=== PATIENT | male | born 1945 | race Hispanic/Latino ===

== ENCOUNTER 2018-02-27 15:12 | Observation (INO) | payer OTHER ==
--- NOTE | 2018-02-27 16:03 | C.PDOC ---
History Of Present Illness 72-year-old male, presents to the emergency department accompanied by family, with complaints of dizziness. Patient state he woke up at 03:00 this morning, and felt that both his legs were feeling weak. Patient notes he went for a walk at 06:00 and continued to feel parasthesias and weakness in both legs. Patient states at 15:00 today, he developed dizziness, described as spinning, which worsens with head movement. He notes associated nausea and non-bloody/non- bilious vomiting. Patient denies any fevers, chills, numbness/weakness, or any other associated symptoms. No other complaints at this time. Time Seen by Provider: 02/27/18 15:41 Chief Complaint (Nursing): Dizziness/Lightheaded History Per: Patient, Family History/Exam Limitations: no limitations Onset/Duration Of Symptoms: Hrs Current Symptoms Are (Timing): Still Present Past Medical History Reviewed: Historical Data, Nursing Documentation, Vital Signs Vital Signs: Last Vital Signs Temp 98.1 F 02/27/18 15:16 Pulse 64 02/27/18 17:04 Resp 16 02/27/18 17:04 BP 133/76 02/27/18 17:04 Pulse Ox 96 02/27/18 17:14 - Medical History PMH: Denies: Chronic Kidney Disease - [facility] Procedures CLOSED ENDOSCOPIC BIOPSY OF LARGE INTESTINE (10/11/14) Family History: States: No Known Family Hx - Social History Hx Alcohol Use: Yes Hx Substance Use: Yes Review Of Systems Except As Marked, All Systems Reviewed And Found Negative. Constitutional: Negative for: Fever Cardiovascular: Negative for: Chest Pain, Palpitations Respiratory: Negative for: Shortness of Breath Gastrointestinal: Positive for: Nausea, Vomiting. Negative for: Abdominal Pain Neurological: Positive for: Weakness, Dizziness. Negative for: Numbness, Altered Mental Status, Headache Physical Exam - Physical Exam Appears: Non-toxic, No Acute Distress Skin: Normal Color, Warm, Dry, No Rash Head: Atraumatic, Normacephalic Eye(s): bilateral: Normal Inspection, PERRL, EOMI Nose: Normal Oral Mucosa: Moist Lips: Normal Appearing Neck: Normal ROM Cardiovascular: Rhythm Regular, No Murmur Respiratory: Normal Breath Sounds, No Accessory Muscle Use Gastrointestinal/Abdominal: Soft, No Tenderness Extremity: Normal ROM, No Deformity, No Swelling Neurological/Psych: Oriented x3, Normal Speech, Other (SEE NIH) ED Course And Treatment - Laboratory Results Result Diagrams: 02/27/18 16:09 02/27/18 16:09 O2 Sat by Pulse Oximetry: 96 Pulse Ox Interpretation: Normal (RA) NIHSS Stroke Scale 2 - Date/Time Evaluation Performed Date Performed: 02/27/18 Time Performed: 16:01 When Was NIHSS Performed: Code Stroke - How Severe is the Stroke Level of Consciousness: 0=Alert LOC to Questions: 0=Both comments correct LOC to commands: 0=Obeys both correctly Best Gaze: 0=Normal Visual: 0=No visual loss Facial: 0=Normal Motor Arm - Left: 0=No drift Motor Arm - Right: 0=No drift Motor Leg - Left: 0=No drift Motor Leg - Right: 0=No drift Limb Ataxia: 0=Absent Sensory: 0=Normal Best Language: 0=No aphasia Dysarthia: 0=Normal articulation Extinction & Inattention (Neglect): 0=Normal, no object Score: 0 Progress - Re-Evaluation Re-evaluation Note: 02/27/18 16:00 CODE STROKE ACTIVATED PER DEPT GUIDELINES PENDING CALLBACK DR ROGER 02/27/18 17:14 D/W DR ROGER AWARE OF ER FINDINGS. ADVISES MRI, ADMIT MEDICINE WILL CONSULT 02/27/18 17:42 EXAM IMPROVED D/W DR José Luis [facility] C/F PMD, WILL ADMIT. STATES TO ADMIT DR ALAMO - Data Reviewed Data Reviewed: Lab, Diagnostic imaging, EKG, Old records rTPA Inclusion/Exclusion - Refusal of Treatment Patient Refused Treatment: Yes - Inclusion Criteria for Altepase Patient is 18 years or Older: Yes The Clinical Diagnosis of Ischemic Stroke That is Causing a Potentially Disabling Neurological Deficit: No Time of Onset is Well Established to be Less Than 270 Minute Before Treatment Would Begin: No Risk/Benefit Discussed With Patient/Family Member Present: Yes - Exclusion Criteria for Altepase Uncontrolled Hypertension at Time of Treatment (Systolic BP above 185 or Diastolic BP above 110 mmHg): Yes Active Internal Bleeding: No Known Bleeding Diathesis Including but Not Limited to: Platelets Below 100,000/ mm,PTT Above 40 sec After Heparin Use, Current Use of Oral Anitcoagulant With INR Greater Than 1.7 or PT Greater Than 15 secs: No Evidence of an Intracranial Hemorrhage: No Evidence of Major Acute Infarct With Signs Greater Than 1/3 MCA Territory: No Suspicion of Subarachnoid Hemorrhage on Pretreatment Evaluation Even if CT Head Negative For Hemorrhage: No - Warning to TPA With Conditions Following Conditions Weighed Against Anticipated Benefit: Yes Condition: Stroke Serevity Too Mild Disposition Counseled Patient/Family Regarding: Studies Performed, Diagnosis - Disposition Disposition: HOSPITALIZED Disposition Time: 17:56 Condition: STABLE Forms: [facility] (Khmer) - Clinical Impression Clinical Impression: Syncope, Vertigo - Scribe Statement The provider has reviewed the documentation as recorded by the Scribe (Jacky Hoang) All medical record entries made by the Scribe were at my direction and personally dictated by me. I have reviewed the chart and agree that the record accurately reflects my personal performance of the history, physical exam, medical decision making, and the department course for this patient. I have also personally directed, reviewed, and agree with the discharge instructions and disposition. Decision To Admit - Pt Status Changed To: Hospital Disposition Of: Observation - . Bed Request Type: Telemetry Admitting Physician: Carlos Alamo Patient Diagnosis: Syncope, Vertigo, TIA (transient ischemic attack)
[2018-02-27 16:12] LABS: BASO # 0.1 K/uL (0.0-0.2); BASO % 0.7 % (0.0-2.0); EOS % 0.5 % (0.0-4.0); HEMOGLOBIN 13.8 g/dL (12.0-18.0); LYMPH # 1.7 K/uL (1.0-4.3); LYMPH % 21.5 % (20.0-40.0); MEAN CELL VOLUME 97.4 fL (80.0-94.0); MEAN CORPUSCULAR HEMOGLOBIN 32.5 pg (27.0-31.0); MEAN CORPUSCULAR HGB CONC 33.4 g/dL (33.0-37.0); MEAN PLATELET VOLUME 7.6 fL (7.2-11.7); MONO # 0.5 K/uL (0.0-0.8); MONO % 5.6 % (0.0-10.0); NEUT # 5.8 K/uL (1.8-7.0); NEUT % 71.7 % (50.0-75.0); RBC 4.25 Mil/uL (4.40-5.90); RED CELL DISTRIBUTION WIDTH 13.2 % (11.5-14.5); WHITE BLOOD COUNT 8.1 K/uL (4.8-10.8)
[2018-02-27] MEDS ORDERED: Iodixanol 320 mg/ml 150 ml Bottle IV ONE (16:12)
[2018-02-27] MEDS: Sodium Chloride 0.9% 1,000 ML IV SCH (16:15)
--- NOTE | 2018-02-27 16:24 | CT ---
Date of service: 02/27/2018 PROCEDURE: CT HEAD WITHOUT CONTRAST. HISTORY: Code Stroke COMPARISON: None available. TECHNIQUE: Axial computed tomography images were obtained through the head/brain without intravenous contrast. . Radiation dose: Total exam DLP = mGy-cm. This CT exam was performed using one or more of the following dose reduction techniques: Automated exposure control, adjustment of the mA and/or kV according to patient size, and/or use of iterative reconstruction technique. FINDINGS: HEMORRHAGE: No acute parenchymal, subarachnoid nor extra-axial hemorrhage. BRAIN: No evidence of large infarct. Suspect minimal chronic periventricular white matter ischemic changes. Note that the possibility of a small hyperacute infarct cannot be excluded on this study. . No obvious parenchymal nor extra-axial mass or collection seen. Mild generalized volume loss. Mild vascular calcifications VENTRICLES: No obstructive hydrocephalus. CALVARIUM: Calvarium intact. PARANASAL SINUSES: Minor mucosal thickening seen within a few ethmoid air cells. MASTOID AIR CELLS: Unremarkable as visualized. No inflammatory changes. OTHER FINDINGS: None. IMPRESSION: No acute intracranial hemorrhage. Suspect minor chronic periventricular white matter ischemic changes. Mild moderate generalized volume loss
--- NOTE | 2018-02-27 16:52 | CT ---
Date of service: 02/27/2018 PROCEDURE: CT Angiography of the neck neck and brain dated 02/27/2018 HISTORY: VERTIGO, LEG WEAKNESS COMPARISON: Comparison made with concurrent CT scan brain TECHNIQUE: Contiguous axial images of the neck and brain were obtained from the level of the vertex to the superior mediastinum in the arteriographic phase of enhancement. Coronal and sagittal reformats or also generated. IV contrast dose: 100 cc Visipaque 320 Radiation Dose - DLP: 580.28 mGy-cm This CT exam was performed using one or more of the following dose reduction techniques: Automated exposure control, adjustment of the mA and/or kV according to patient size, and/or use of iterative reconstruction technique. FINDINGS: The aortic arch is widely patent as are the origins of the great vessels. No significant atherosclerotic disease. Ascending thoracic aorta measures approximate 2.9 cm and descending thoracic aorta measures approximately 2.3 cm. RIGHT CAROTID ARTERIES: Common Carotid Artery: Normal. Carotid Bifurcation: Normal. Internal Carotid Artery:Normal. External Carotid Artery (proximal branches): Normal. LEFT CAROTID ARTERIES: Common Carotid Artery: Normal. Carotid Bifurcation: Normal. Internal Carotid Artery:Normal. External Carotid Artery (proximal branches): Normal. VERTEBRAL ARTERIES: Rig both vertebral arteries are patent right-sided which is slightly larger in caliber/ more dominant than the left-side. Basilar artery is patent. OTHER FINDINGS: The distal internal carotid arteries including the petrous cavernous and supraclinoid segments also patent. . The visualized major branches of the [place] are also patent. Some minimal asymmetry of the A1 segments, which left-sided which is slightly larger in caliber/more dominant than the right side. The distal branches of the middle cerebral arteries appear symmetric. No evidence of large aneurysm nor vascular malformation. IMPRESSION: No evidence of occlusion or significant stenosis of the cervical or intracranial circulation. No evidence of significant atherosclerotic disease. No evidence of large aneurysm nor vascular malformation.
[2018-02-27 16:55] LABS: BLOOD UREA NITROGEN 13 mg/dL (9-20); CALCIUM 9.3 mg/dl (8.6-10.4); GFR AFRICAN-AMERICAN > 60; GFR NON-AFRICAN AMERICAN > 60
[2018-02-27 16:56] LABS: ALB/GLOB RATIO 1.2 (1.0-2.1); ALBUMIN 4.1 g/dL (3.5-5.0); ALT/SGPT 27 U/L (21-72); AST/SGOT 25 U/L (17-59); HDL CHOLESTEROL 39 mg/dL (30-70); LDL CHOLESTEROL 118 mg/dL (0-129)
[2018-02-27 17:05] LABS: INR 1.1; PROTHROMBIN TIME 11.6 SECONDS (9.7-12.2)
--- NOTE | 2018-02-27 17:19 | RAD ---
Date of service: 02/27/2018 HISTORY: Code Stroke COMPARISON: No prior. FINDINGS: LUNGS: No active pulmonary disease. PLEURA: No significant pleural effusion identified, no pneumothorax apparent. CARDIOVASCULAR: Normal. OSSEOUS STRUCTURES: No significant abnormalities. VISUALIZED UPPER ABDOMEN: Normal. OTHER FINDINGS: None. IMPRESSION: No active disease.
[2018-02-27 22:33] VITALS: RESP 20
[2018-02-27 23:24] VITALS: TEMP 98.1
[2018-02-28] MEDS: Sodium Chloride 0.9% 1,000 ML IV SCH (01:19)
--- NOTE | 2018-02-28 01:42 | CP.PCM.HP ---
<Carlos Alamo P - Last Filed: 02/28/18 06:31> Meds Home Medications: Home Medication List Medication Instructions Recorded Confirmed Type Aspirin 81 mg PO DAILY #30 tab.chew 02/28/18 Rx Meclizine [Meclizine*] 25 mg PO Q6 PRN #30 tab 02/28/18 Rx Allergies/Adverse Reactions: Allergies Allergy/AdvReac Type Severity Reaction Status Date / Time No Known Allergies Allergy Verified 02/27/18 15:19 Results - Vital Signs Recent Vital Signs: Last Vital Signs Temp 98.1 F 02/27/18 23:23 Pulse 69 02/28/18 04:00 Resp 20 02/27/18 23:23 BP 119/75 02/27/18 23:23 Pulse Ox 99 02/28/18 03:00 - Labs Result Diagrams: 02/27/18 16:09 02/27/18 16:09 Labs: Laboratory Results - last 24 hr 02/27/18 02/27/18 02/27/18 16:09 16:09 16:09 WBC 8.1 RBC 4.25 L Hgb 13.8 Hct 41.4 MCV 97.4 H MCH 32.5 H MCHC 33.4 RDW 13.2 Plt Count 362 MPV 7.6 Neut % (Auto) 71.7 Lymph % (Auto) 21.5 Woodson % (Auto) 5.6 Eos % (Auto) 0.5 Baso % (Auto) 0.7 Neut # (Auto) 5.8 Lymph # (Auto) 1.7 Woodson # (Auto) 0.5 Eos # (Auto) 0.0 Baso # (Auto) 0.1 PT 11.6 INR 1.1 APTT 32 Sodium 137 Potassium 4.7 Chloride 101 Carbon Dioxide 24 Anion Gap 17 BUN 13 Creatinine 0.8 Est GFR ( Amer) > 60 Est GFR (Non-Af Amer) > 60 Random Glucose 127 H Hemoglobin A1c Calcium 9.3 Total Bilirubin 0.8 AST 25 ALT 27 Alkaline Phosphatase 71 Troponin I < 0.0120 Total Protein 7.4 Albumin 4.1 Globulin 3.3 Albumin/Globulin Ratio 1.2 Triglycerides 89 Cholesterol 188 LDL Cholesterol Direct 118 HDL Cholesterol 39 Blood Type Antibody Screen 02/27/18 02/27/18 16:33 16:33 WBC RBC Hgb Hct MCV MCH MCHC RDW Plt Count MPV Neut % (Auto) Lymph % (Auto) Woodson % (Auto) Eos % (Auto) Baso % (Auto) Neut # (Auto) Lymph # (Auto) Woodson # (Auto) Eos # (Auto) Baso # (Auto) PT INR APTT Sodium Potassium Chloride Carbon Dioxide Anion Gap BUN Creatinine Est GFR ( Amer) Est GFR (Non-Af Amer) Random Glucose Hemoglobin A1c 5.9 Calcium Total Bilirubin AST ALT Alkaline Phosphatase Troponin I Total Protein Albumin Globulin Albumin/Globulin Ratio Triglycerides Cholesterol LDL Cholesterol Direct HDL Cholesterol Blood Type O POSITIVE Antibody Screen Negative Attending/Attestation - Attestation I have personally seen and examined this patient.: Yes I have fully participated in the care of the patient.: Yes I have reviewed all pertinent clinical information: Yes Notes (Text): Assessment Clinically BPVV, as no other neurologic deficit. Stroke w/u recommended by neurology, MRI brain hence ordered. Plan Symptomatic treatment with meclinzine Counselled about controlling symptoms with acute episode PRN Zofran DVT prophylaxis See orders for detail. <Tavo Ross - Last Filed: 02/28/18 20:49> History of Present Illness - History of Present Illness History of Present Illness: 72yo male qith no knoqn pmh presents to the ED with one day history of dizziness. Pt woke up this morning at 3am with extreme dizziness and went back to sleep. at 6am he woke up again and tried to walk, the room began to spin, he fell down on his side. Pt denies any injuries sustained when falling. Pt states the pain is worse with head rotation to the left. he states it was worse this morning but feels better now after his treatment of meclizine given by the ED. Pt reported vomiting his breakfast today from the dizziness. Pt states hes never had these symptoms before. Pt also complains of bilateral leg weakness but says it is resolved by laying down. ROS: pos+ dizziness, n/v, recent sickness (stomach ache 15 days ago 1 episode of vomitting) neg- f/c, sick contacts, bruising, bleeding, slurred speech, memory loss, numbness, tingling, loss of bowel/bladder control, SOB, Cough Present on Admission - Present on Admission Any Indicators Present on Admission: No Review of Systems - Constitutional Constitutional: As Per HPI - EENT Eyes: As Per HPI Ears: As Per HPI Nose/Mouth/Throat: As Per HPI - Cardiovascular Cardiovascular: As Per HPI - Respiratory Respiratory: As Per HPI - Gastrointestinal Gastrointestinal: As Per HPI - Genitourinary Genitourinary: As Per HPI - Reproductive: Male Reproductive:Male: As Per HPI - Musculoskeletal Musculoskeletal: As Per HPI - Integumentary Integumentary: As Per HPI - Neurological Neurological: As Per HPI - Psychiatric Psychiatric: As Per HPI - Endocrine Endocrine: As Per HPI - Hematologic/Lymphatic Hematologic: As Per HPI Past Patient History - Past Medical History & Family History Past Medical History?: Yes - Past Social History Smoking Status: Never Smoked - CARDIAC Hx Cardiac Disorders: No - PULMONARY Hx Respiratory Disorders: Yes Hx Respiratory Tract Infection: Yes - NEUROLOGICAL Hx Neurological Disorder: No - HEENT Hx HEENT Problems: No - RENAL Hx Chronic Kidney Disease: No - ENDOCRINE/METABOLIC Hx Endocrine Disorders: No - HEMATOLOGICAL/ONCOLOGICAL Hx Blood Disorders: No - INTEGUMENTARY Hx Dermatological Problems: No - MUSCULOSKELETAL/RHEUMATOLOGICAL Hx Musculoskeletal Disorders: No - GASTROINTESTINAL Hx Gastrointestinal Disorders: No - GENITOURINARY/GYNECOLOGICAL Hx Genitourinary Disorders: No - PSYCHIATRIC Hx Substance Use: Yes - SURGICAL HISTORY Hx Surgeries: Yes Hx Musculoskeletal Surgery: Yes (FX RIGHT ARM) - ANESTHESIA Hx Anesthesia: Yes Hx Anesthesia Reactions: No Hx Malignant Hyperthermia: No Physical Exam - Constitutional Appears: Non-toxic, No Acute Distress - Head Exam Head Exam: ATRAUMATIC, NORMAL INSPECTION - Eye Exam Eye Exam: EOMI, Normal appearance. absent: Periorbital swelling, Scleral icterus - ENT Exam ENT Exam: Mucous Membranes Moist - Neck Exam Neck exam: Positive for: Normal Inspection - Respiratory Exam Respiratory Exam: Clear to Auscultation Bilateral, NORMAL BREATHING PATTERN. absent: Wheezes, Respiratory Distress, Stridor - Cardiovascular Exam Cardiovascular Exam: RRR, +S1, +S2. absent: Diastolic murmur, Systolic Murmur - GI/Abdominal Exam GI & Abdominal Exam: Normal Bowel Sounds, Soft. absent: Guarding, Tenderness - Extremities Exam Extremities exam: Positive for: full ROM, normal inspection, pedal pulses present. Negative for: tenderness - Back Exam Back exam: NORMAL INSPECTION - Neurological Exam Neurological exam: Alert, CN II-XII Intact, Oriented x3 Additional comments: Neg: Hoffmans, blink reflex tap, rhomberg's, pronator drift, dixx hallpike, intention tremor, 3 item memory deficit pos: nausea and dizziness reproduced with left sided head rotation - Psychiatric Exam Psychiatric exam: Normal Affect - Skin Skin Exam: Dry, Intact, Warm Results - Vital Signs Recent Vital Signs: Last Vital Signs Temp 98.1 F 02/27/18 23:23 Pulse 81 02/27/18 23:23 Resp 20 02/27/18 23:23 BP 119/75 02/27/18 23:23 Pulse Ox 99 02/27/18 23:23 - Labs Result Diagrams: 02/28/18 11:44 02/28/18 11:44 Labs: Laboratory Results - last 24 hr 02/27/18 02/27/18 02/27/18 16:09 16:09 16:09 WBC 8.1 RBC 4.25 L Hgb 13.8 Hct 41.4 MCV 97.4 H MCH 32.5 H MCHC 33.4 RDW 13.2 Plt Count 362 MPV 7.6 Neut % (Auto) 71.7 Lymph % (Auto) 21.5 Woodson % (Auto) 5.6 Eos % (Auto) 0.5 Baso % (Auto) 0.7 Neut # (Auto) 5.8 Lymph # (Auto) 1.7 Woodson # (Auto) 0.5 Eos # (Auto) 0.0 Baso # (Auto) 0.1 PT 11.6 INR 1.1 APTT 32 Sodium 137 Potassium 4.7 Chloride 101 Carbon Dioxide 24 Anion Gap 17 BUN 13 Creatinine 0.8 Est GFR ( Amer) > 60 Est GFR (Non-Af Amer) > 60 Random Glucose 127 H Hemoglobin A1c Calcium 9.3 Total Bilirubin 0.8 AST 25 ALT 27 Alkaline Phosphatase 71 Troponin I < 0.0120 Total Protein 7.4 Albumin 4.1 Globulin 3.3 Albumin/Globulin Ratio 1.2 Triglycerides 89 Cholesterol 188 LDL Cholesterol Direct 118 HDL Cholesterol 39 Blood Type Antibody Screen 02/27/18 02/27/18 16:33 16:33 WBC RBC Hgb Hct MCV MCH MCHC RDW Plt Count MPV Neut % (Auto) Lymph % (Auto) Woodson % (Auto) Eos % (Auto) Baso % (Auto) Neut # (Auto) Lymph # (Auto) Woodson # (Auto) Eos # (Auto) Baso # (Auto) PT INR APTT Sodium Potassium Chloride Carbon Dioxide Anion Gap BUN Creatinine Est GFR ( Amer) Est GFR (Non-Af Amer) Random Glucose Hemoglobin A1c 5.9 Calcium Total Bilirubin AST ALT Alkaline Phosphatase Troponin I Total Protein Albumin Globulin Albumin/Globulin Ratio Triglycerides Cholesterol LDL Cholesterol Direct HDL Cholesterol Blood Type O POSITIVE Antibody Screen Negative Assessment & Plan - Assessment and Plan (Free Text) Assessment: BPV: -Meclizine 50mg PO -Zofran 4mg IV -IVF NS 100ml code stroke -ct head: neg -neuro consulted Dr Galaviz: MRI head and neck pending PPX -ASA 325mg PO -Heart Healthy Diet
[2018-02-28 07:56] VITALS: BP 141/77; O2SAT 98
[2018-02-28 10:44] VITALS: PULSE 71
[2018-02-28 11:55] LABS: HEMOGLOBIN 12.7 g/dL (12.0-18.0); MEAN CELL VOLUME 97.5 fL (80.0-94.0); MEAN CORPUSCULAR HEMOGLOBIN 33.4 pg (27.0-31.0); MEAN CORPUSCULAR HGB CONC 34.3 g/dL (33.0-37.0); MEAN PLATELET VOLUME 7.7 fL (7.2-11.7); RBC 3.8 Mil/uL (4.40-5.90); RED CELL DISTRIBUTION WIDTH 13.3 % (11.5-14.5); WHITE BLOOD COUNT 6.2 K/uL (4.8-10.8)
[2018-02-28 12:20] LABS: ALB/GLOB RATIO 1.3 (1.0-2.1); ALBUMIN 3.5 g/dL (3.5-5.0); ALT/SGPT 28 U/L (21-72); AST/SGOT 21 U/L (17-59); BLOOD UREA NITROGEN 13 mg/dL (9-20); CALCIUM 9.1 mg/dl (8.6-10.4); GFR AFRICAN-AMERICAN > 60; GFR NON-AFRICAN AMERICAN > 60
--- NOTE | 2018-02-28 12:49 | CP.PCM.PN ---
Subjective - Date & Time of Evaluation Date of Evaluation: 02/28/18 Time of Evaluation: 12:46 - Subjective Subjective: PGY-1 Medicine Progress Note for Dr. Murguia's service Patient seen and examined at bedside. Patient reports no dizziness or vomiting since 11 pm yesterday. Patient denies chest pain, sob, n/v, constipation, diarrhea, dysuria, headaches, vision changes, hemiparesis, weakenss in extremities. Objective - Vital Signs/Intake and Output Vital Signs (last 24 hours): Temp Pulse Resp BP Pulse Ox 98.1 F 71 20 141/77 98 02/28/18 07:53 02/28/18 09:00 02/28/18 07:53 02/28/18 07:53 02/28/18 07:53 - Medications Medications: Current Medications Heparin Sodium (Porcine) (Heparin) 5,000 units SC Q12 [facility] Last Admin: 02/28/18 10:16 Dose: 5,000 units Sodium Chloride (Sodium Chloride 0.9%) 1,000 mls @ 100 mls/hr IV .Q10H [facility] Last Admin: 02/28/18 01:19 Dose: Not Given Meclizine HCl (Antivert) 25 mg PO Q6 PRN PRN Reason: dizziness Ondansetron HCl (Zofran Inj) 4 mg IVP Q6H PRN PRN Reason: Nausea/Vomiting - Labs Labs: 02/28/18 11:44 02/28/18 11:44 PT 11.6 SECONDS (9.7-12.2) 02/27/18 16:09 INR 1.1 02/27/18 16:09 APTT 32 SECONDS (21-34) 02/27/18 16:09 - Constitutional Appears: Non-toxic, No Acute Distress - Head Exam Head Exam: NORMAL INSPECTION, NORMOCEPHALIC - Eye Exam Eye Exam: EOMI, Normal appearance. absent: Nystagmus, Scleral icterus - ENT Exam ENT Exam: Mucous Membranes Moist, Normal Exam - Respiratory Exam Respiratory Exam: Clear to Ausculation Bilateral, NORMAL BREATHING PATTERN. absent: Rales, Rhonchi, Wheezes - Cardiovascular Exam Cardiovascular Exam: REGULAR RHYTHM, +S1, +S2. absent: JVD - GI/Abdominal Exam GI & Abdominal Exam: Soft, Normal Bowel Sounds. absent: Guarding, Rigid, Tenderness - Extremities Exam Extremities Exam: Normal Inspection. absent: Calf Tenderness, Pedal Edema - Back Exam Back Exam: NORMAL INSPECTION. absent: CVA tenderness (L), CVA tenderness (R), vertebral tenderness - Neurological Exam Neurological Exam: Alert, Awake, Oriented x3 Neuro motor strength exam: Left Upper Extremity: 5, Right Upper Extremity: 5, Left Lower Extremity: 5, Right Lower Extremity: 5 Additional comments: romberg negative babinski sign negative - Psychiatric Exam Psychiatric exam: Normal Affect, Normal Mood - Skin Skin Exam: Intact, Normal Color Assessment and Plan - Assessment and Plan (Free Text) Plan: BPV Continue Meclizine 50mg PO IVF NS @ 100ml Stroke Neuro consulted Dr Galaviz: MRI head and neck pending 02/27/18 CT head: No acute intracranial hemorrhage. Suspect minor chronic periventricular white matter ischemic changes. Mild moderate generalized volume loss 03/07/18 Head/Neck CTA: No evidence of occlusion or significant stenosis of the cervical or intracranial circulation. No evidence of significant atherosclerotic disease. No evidence of large aneurysm nor vascular malformation 02/28/18 Brain MRI pending PPX Heparin 5000 sc q12 Heart Healthy Diet
--- NOTE | 2018-02-28 13:58 | MRI ---
Date of service: 02/28/2018 PROCEDURE: MRI BRAIN WITHOUT CONTRAST HISTORY: vertigo COMPARISON: Comparison is made with the previous CT of the head dated 02/27/2018 TECHNIQUE: Multiplanar, multisequence MR images of the brain were obtained without intravenous contrast enhancement. FINDINGS: HEMORRHAGE: None DWI: No evidence of an acute or early subacute infarction. BRAIN PARENCHYMA: No mass effect or edema. No atrophy or chronic microvascular ischemic changes. VENTRICLES: Unremarkable. No hydrocephalus. CRANIUM: Unremarkable. ORBITS: Grossly unremarkable. PARANASAL SINUSES/MASTOIDS: Clear VASCULAR SYSTEM: Skull base flow voids intact. OTHER FINDINGS: None. IMPRESSION: No evidence of acute infarct. No evidence of mass lesion mass effect or midline shift. No acute pathology noted in this study.
--- NOTE | 2018-02-28 20:14 | CP.PCM.DIS ---
Provider - Provider Date of Admission: 02/27/18 18:00 Attending physician: Carlos Alamo MD Time Spent in preparation of Discharge (in minutes): 45 Hospital Course - Lab Results Lab Results: Most Recent Lab Values WBC 6.2 K/uL (4.8-10.8) 02/28/18 11:44 RBC 3.80 Mil/uL (4.40-5.90) L 02/28/18 11:44 Hgb 12.7 g/dL (12.0-18.0) 02/28/18 11:44 Hct 37.0 % (35.0-51.0) 02/28/18 11:44 MCV 97.5 fL (80.0-94.0) H 02/28/18 11:44 MCH 33.4 pg (27.0-31.0) H 02/28/18 11:44 MCHC 34.3 g/dL (33.0-37.0) 02/28/18 11:44 RDW 13.3 % (11.5-14.5) 02/28/18 11:44 Plt Count 333 K/uL (130-400) 02/28/18 11:44 MPV 7.7 fL (7.2-11.7) 02/28/18 11:44 Neut % (Auto) 71.7 % (50.0-75.0) 02/27/18 16:09 Lymph % (Auto) 21.5 % (20.0-40.0) 02/27/18 16:09 Weston % (Auto) 5.6 % (0.0-10.0) 02/27/18 16:09 Eos % (Auto) 0.5 % (0.0-4.0) 02/27/18 16:09 Baso % (Auto) 0.7 % (0.0-2.0) 02/27/18 16:09 Neut # (Auto) 5.8 K/uL (1.8-7.0) 02/27/18 16:09 Lymph # (Auto) 1.7 K/uL (1.0-4.3) 02/27/18 16:09 Weston # (Auto) 0.5 K/uL (0.0-0.8) 02/27/18 16:09 Eos # (Auto) 0.0 K/uL (0.0-0.7) 02/27/18 16:09 Baso # (Auto) 0.1 K/uL (0.0-0.2) 02/27/18 16:09 PT 11.6 SECONDS (9.7-12.2) 02/27/18 16:09 INR 1.1 02/27/18 16:09 APTT 32 SECONDS (21-34) 02/27/18 16:09 Sodium 140 mmol/L (132-148) 02/28/18 11:44 Potassium 4.3 mmol/L (3.6-5.2) 02/28/18 11:44 Chloride 105 mmol/L (98-107) 02/28/18 11:44 Carbon Dioxide 28 mmol/L (22-30) 02/28/18 11:44 Anion Gap 11 (10-20) 02/28/18 11:44 BUN 13 mg/dL (9-20) 02/28/18 11:44 Creatinine 0.9 mg/dL (0.8-1.5) 02/28/18 11:44 Est GFR ( Amer) > 60 02/28/18 11:44 Est GFR (Non-Af Amer) > 60 02/28/18 11:44 Random Glucose 83 mg/dL (75-110) 02/28/18 11:44 Hemoglobin A1c 5.9 % (4.2-6.5) 02/27/18 16:33 Calcium 9.1 mg/dl (8.6-10.4) 02/28/18 11:44 Phosphorus 2.7 mg/dL (2.5-4.5) 02/28/18 11:44 Magnesium 1.9 mg/dL (1.6-2.3) 02/28/18 11:44 Total Bilirubin 0.7 mg/dL (0.2-1.3) 02/28/18 11:44 AST 21 U/L (17-59) 02/28/18 11:44 ALT 28 U/L (21-72) 02/28/18 11:44 Alkaline Phosphatase 59 U/L (38-126) 02/28/18 11:44 Troponin I < 0.0120 ng/mL (0.00-0.120) 02/27/18 16:09 Total Protein 6.2 g/dL (6.3-8.3) L 02/28/18 11:44 Albumin 3.5 g/dL (3.5-5.0) 02/28/18 11:44 Globulin 2.8 gm/dL (2.2-3.9) 02/28/18 11:44 Albumin/Globulin Ratio 1.3 (1.0-2.1) 02/28/18 11:44 Triglycerides 89 mg/dL (0-149) 02/27/18 16:09 Cholesterol 188 mg/dL (0-199) 02/27/18 16:09 LDL Cholesterol Direct 118 mg/dL (0-129) 02/27/18 16:09 HDL Cholesterol 39 mg/dL (30-70) 02/27/18 16:09 Blood Type O POSITIVE 02/27/18 16:33 Antibody Screen Negative 02/27/18 16:33 - Hospital Course Hospital Course: Upon Admission: 72yo male with no known pmh presents to the ED with one day history of dizziness. Pt woke up this morning at 3am with extreme dizziness and went back to sleep. at 6am he woke up again and tried to walk, the room began to spin, he fell down on his side. Pt denies any injuries sustained when falling. Pt states the pain is worse with head rotation to the left. he states it was worse this morning but feels better now after his treatment of meclizine given by the ED. Pt reported vomiting his breakfast today from the dizziness. Pt states hes never had these symptoms before. Pt also complains of bilateral leg weakness but says it is resolved by laying down. Hospital Course: Patient is a 72 yo male who presents to the hospital for weakness and dizziness a/w nausea + vomiting. 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 Discharge Plan: Patient is stable for discharge to home as per Dr. Murguia. Patient is to follow up with the following doctors within 1 of discharge from hospital: Dr. Mode Rogel, Dr. Patrick Wills, Dr. Roberto Aguilar. Patient is instructed to take the following medications upon discharge at home: Aspirin 81mg by mouth once daily, Meclizine 25mg by mouth every 6 hours if needed (if dizziness is present). Patient is to return to the hospital if symptoms recur or worsen. Patient understands and agrees to the plan above. Disclaimer: Written above is a shortened synopsis of patient's current hospital admission. For full report refer to EMR. Discharge Exam - Head Exam Head Exam: NORMAL INSPECTION, NORMOCEPHALIC Discharge Plan - Discharge Medications Prescriptions: Aspirin 81 mg PO DAILY #30 tab.chew Meclizine [Meclizine*] 25 mg PO Q6 PRN #30 tab PRN Reason: dizziness - Follow Up Plan Condition: STABLE Disposition: HOME/ ROUTINE Instructions: Vertigo (a Type of Dizziness) (DC), Syncope (DC), Syncope (GEN) Referrals: Roberto Aguilar MD [Staff Provider] - Patrick Wills MD [Staff Provider] - Mode Sweeney MD [Staff Provider] -
== END 2018-02-28 16:31 | disposition home or self-care (01) ==
LOC: C.ER 15:12 → C.9E 18:00 → C.6T 19:00
PROVIDERS: ADMIT Internal Medicine; ATTEND Internal Medicine
DX: R42 Dizziness and giddiness (principal); W19.XXXA Unspecified fall, initial encounter
CPT/HCPCS: 36415; 70450; 70496; 70498; 70551; 71045; 80053; 80061; 83036; 83735; 84100; 84484; 85025; 85027; 85610; 85730; 86850; 86900; 97162; 99285; G0378; G8978; G8979; G8980; J1644; J2405; J7030; Q9967

== ENCOUNTER 2018-11-20 12:59 | Outpatient (CLI) | payer OTHER | END 2018-11-20 13:00 | disposition home or self-care (01) | LOC: C.RADIC 12:59 | DX: L85.3 Xerosis cutis (principal) ==